=== PATIENT | male | born 1965 | race Caucasian/White ===

== ENCOUNTER 2023-05-24 13:09 | Outpatient (CLI) | payer OTHER, SELFPAY ==
--- NOTE | ~2023-05-24 | US_ITS ---
EXAMINATION: US carotid duplex BI DATE: 05/24/2023 14:24 INDICATION: Hypercholesterolemia TECHNIQUE: Grayscale, color Doppler, and pulsed Doppler images of the cervical carotid arteries were obtained. The degree of vessel stenosis is placed in one of the following categories: normal, <50%, 5 0-69%, >=70% but less than near-occlusion, near-occlusion, or total occlusion. Note that percent sten osis relative to normal distal artery lumen diameter is indirectly measured from velocity measurement s as described by Stepan, et al. Radiology 2003; 229:340-346. COMPARISON: None. FINDINGS: RIGHT: The right common carotid artery (CCA) peak systolic velocity (PSV) is 82 cm/s. The right internal car otid artery (ICA) PSV is 74 cm/s. The right ICA end-diastolic velocity (EDV) is 29 cm/s. The right IC A/CCA PSV ratio is 0.9. Grayscale and color Doppler images yield an estimate of <50% diameter reducti on from plaque in the ICA. The external carotid artery (ECA) PSV is 109 cm/s. There is antegrade flow in the right vertebral artery. LEFT: The left CCA PSV is 97 cm/s. The left ICA PSV is 72 cm/s. The left ICA EDV is 19 cm/s. The left ICA/C CA PSV ratio is 0.7. Grayscale and color Doppler images yield an estimate of <50% diameter reduction from plaque in the ICA. The ECA PSV is 83 cm/s. There is antegrade flow in the left vertebral artery. IMPRESSION: 1. <50% stenosis in the right internal carotid artery. 2. <50% stenosis in the left internal carotid artery. Reviewed, dictated and finalized at location A. BOSS
== END 2023-05-24 13:10 | disposition home or self-care (01) ==
LOC: ANHIMG 13:14
PROVIDERS: Visit Provider Internal Medicine Cardiovascular Disease
DX: I65.23 Occlusion and stenosis of bilateral carotid arteries (principal); E78.00 Pure hypercholesterolemia, unspecified
CPT/HCPCS: 93880

== ENCOUNTER 2023-06-01 08:43 | Outpatient (CLI) | payer OTHER, SELFPAY ==
--- NOTE | 2023-06-01 | ECHO_ITS ---
Patient Info Name: Yovanny Chaney Age: 57 years : 1965 Gender: Male Ht: 71 in Wt: 219 lbs BSA: 2.26 m2 HR: 93 bpm BP: 122 / 77 mmHg Technical Quality: Fair Exam Date: 06/01/2023 9:07 AM Exam Location: Echo Lab Patient Status: Outpatient Admit Date: 06/01/2023 Staff Ordering Physician: Ghassan Stone M.D. Lithographic Camera Operator: Iwona Ventura RDCS Attending Provider: Ghassan Stone M.D. Referring Physician: Bertha OROZCO; Exam Type: CA echo doppler color flow Study Info Indications - DYSPNEA Complete two-dimensional, color flow and Doppler transthoracic echocardiogram is performed. Summary 1. Complete two-dimensional, color flow and Doppler transthoracic echocardiogram is performed. 2. Left ventricular chamber dimension is mildly enlarged. 3. Left ventricular systolic function is normal, estimated at 60-65%. 4. The left ventricular diastolic function is grade I diastolic dysfunction. 5. E/e' 7 is not elevated. 6. There is mild aortic valve sclerosis. 7. No pulmonary hypertension, estimated pulmonary arterial systolic pressure is 24 mmHg. Left Ventricle E/e' 7 is not elevated. Left ventricular chamber dimension is mildly enlarged. Left ventricular systolic function is normal, estimated at 60-65%. The left ventricular diastolic function is grade I diastolic dysfunction. Right Ventricle Right ventricular chamber dimension is normal. Right ventricular systolic function is normal. Left Atria Left atrial chamber dimension is normal. Right Atria Right atrial chamber dimension is normal. Aortic Valve The aortic valve is trileaflet. There is mild aortic valve sclerosis. There is no aortic valve stenosis. There is no aortic valve regurgitation. Pulmonic Valve There is no pulmonic regurgitation. Mitral Valve There is no mitral valve stenosis. There is no mitral valve regurgitation. Tricuspid Valve There is no tricuspid valve regurgitation. No pulmonary hypertension, estimated pulmonary arterial systolic pressure is 24 mmHg. Pericardium/Pleural There is no pericardial effusion. Inferior Vena Cava Normal inferior vena cava with >50% collapse upon inspiration consistent with normal right atrial pressure, 5 mmHg. Aorta The aortic root size at the sinus of Valsalva is normal. Left Ventricular Outflow Tract Name Value Normal LVOT 2D LVOT Diameter 2.1 cm LVOT Doppler LVOT Peak Gradient 6 mmHg LVOT Mean Gradient 4 mmHg LVOT VTI 25 cm LVOT VTI/AV VTI Ratio 1.0 LVOT Stroke Volume 82 ml LVOT CO 18.0 l/min LVOT CI 8.0 l/min/m2 Pulmonic Valve Name Value Normal PV Doppler PV Peak Gradient 6 mmHg Mitral Valve Name
--- NOTE | 2023-06-01 | EST_ITS ---
Patient Info Name: Yovanny Chaney Age: 57 years : 1965 Gender: Male Ht: 71 in Wt: 219 lbs BSA: 2.26 m2 HR: 94 bpm BP: 112 / 72 mmHg Heart Rhythm: Sinus Rhythm Exam Date: 06/01/2023 10:47 AM Exam Location: Echo Lab Patient Status: Outpatient Admit Date: 06/01/2023 Staff Ordering Physician: Ghassan Stone M.D. Attending Provider: Ghassan Stone M.D. Exercise Technologist: Lizbeth Rodriguez CT Nurse: Silvia Gray APN Exercise Physician: Brennan Virgen MD Exam Type: CA stress kaitlyn w NM Study Info Indications R06.09 - Other forms of dyspnea A regadenoson stress test was performed. Summary 1. No abnormal ST/T wave changes diagnostic of ischemia with Lexiscan. 2. Please correlate with nuclear medicine images, reported separately. 3. Stress test supervised by Silvia Gray NP. Stress test interpreted by Davion Gutierrez MD. Protocol: Lexiscan Stress ECG Details Stage: REST Duration (min): 1 min : 16 sec HR (bpm): 97 SBP (mmHg): 112 DBP (mmHg): 72 Stage: REST Duration (min): 19 min : 23 sec HR (bpm): 88 SBP (mmHg): 112 DBP (mmHg): 72 Stage: STAGE 1 Duration (min): 1 min : 0 sec HR (bpm): 116 SBP (mmHg): 117 DBP (mmHg): 73 Stage: RECOVERY Duration (min): 1 min : 0 sec HR (bpm): 112 SBP (mmHg): 117 DBP (mmHg): 73 Stage: RECOVERY Duration (min): 2 min : 0 sec HR (bpm): 108 SBP (mmHg): 117 DBP (mmHg): 73 Stage: RECOVERY Duration (min): 3 min : 0 sec HR (bpm): 110 SBP (mmHg): 125 DBP (mmHg): 73 Stage: RECOVERY Duration (min): 3 min : 18 sec HR (bpm): 105 SBP (mmHg): 125 DBP (mmHg): 73 Rest HR: 88 bpm Peak HR: 117 bpm Rest Sys BP: 112 mmHg Peak Sys BP: 125 mmHg Max Pred HR: 161 bpm % Max Pred HR: 73 % Target HR: 137 bpm Max RPP: 14,625 bpm*mmHg Total Time: 1 min : 0 sec Rest Mckeon BP: 72 mmHg Peak Mckeon BP: 73 mmHg Total Dose: 0.4 mg Resting ECG Sinus rhythm. Stress ECG Sinus tachycardia. No abnormal ST/T wave changes diagnostic of ischemia with Lexiscan. Arrhythmias None. Report Signatures
--- NOTE | ~2023-06-01 | NM_ITS ---
EXAMINATION: NM kaitlyn stress w perfusion DATE: 06/01/2023 12:26 INDICATION: Hypercholesterolemia TECHNIQUE: Rest images were obtained following intravenous administration of 9.5 mCi Tc99m tetrofosmi n (Myoview). The patient was infused intravenously with Lexiscan (Regadenoson). Then, 29.6 mCi Tc99m tetrofosmin (Myoview) was administered intravenously, and stress images were obtained initially in th e supine position with repeat post stress imaging obtained in the prone position. Data was reconstruc jessie into short axis and horizontal and vertical long axis SPECT images. Gated SPECT images were also obtained. COMPARISON: None. FINDINGS: Artifactual regions of decreased activity along the mid inferior and septal, inferior and l ateral apical segments on the imaging obtained in the supine position, all of which normalizes on the post stress and prone imaging. There is no definitive ischemia or infarct on the prone post stress i maging. There is normal left ventricular chamber size, wall motion and ejection fraction. Left ventr icular ejection fraction measures 65%. IMPRESSION: 1. No evident ischemia or infarct with normal myocardial perfusion on the post stress imaging obtaine d in the prone position. 2. Left ventricular ejection fraction measuring 65%. Reviewed, dictated and finalized at location A. S [employer] IMPRESSION: 1. No evident ischemia or infarct with normal myocardial perfusion on the post stress imaging obtained in the prone position. 2. Left ventricular ejection fraction measuring 65%.
== END 2023-06-01 08:44 | disposition home or self-care (01) ==
LOC: ANHCARD 08:44
PROVIDERS: Visit Provider Internal Medicine Cardiovascular Disease
DX: E78.00 Pure hypercholesterolemia, unspecified (principal); R06.00 Dyspnea, unspecified; I35.8 Other nonrheumatic aortic valve disorders
CPT/HCPCS: 78452; 93017; 93306; A9502; J2785